=== PATIENT | female | born 1975 | race Caucasian/White ===

== ENCOUNTER 2020-06-26 09:39 | Emergency (ER) | payer OTHER ==
[~2020-06-26] VITALS: Ht 167.6 cm; Wt 70.1 kg
[~2020-06-26 09:39] MED LIST: FLUT1DIS3 INH
[2020-06-26] MEDS ORDERED: DEXAMETHASONE 4 MG TABLET PO ONE (10:30)
--- NOTE | 2020-06-26 10:45 | NUR ---
OBSERVED PT WALKING WITHIN ED ROOM, TALKING ON THE PHONE
[2020-06-26 10:50] LABS: ALBUMIN 4.2 g/dL (3.4-5.0); ANION GAP 4 mmol/L (5-15); CALCIUM 9.4 mg/dL (8.5-10.1); CHLORIDE 114 mmol/L (98-107); CREATININE 0.83 mg/dL (0.55-1.02)
[2020-06-26] MEDS ORDERED: DEXAMETHASONE 4 MG TABLET ONE (10:52)
[2020-06-26 10:54] LABS: TROPONIN I < 0.015 ng/mL (0.000-0.045)
--- NOTE | 2020-06-26 10:55 | NUR ---
PT STATES SHE HAD COVID TEST ON 06/15 AND 06/16; BOTH RESULTED POSITIVE. HOME QUARANTINE SINCE SX STARTED ON 06/13. NO RX TAKEN FOR SX; HAS BEEN TAKING VITAMIN C, D & ZINC. REPORTS SLIGHT SOB W/ SITTING STILL AND SLEEPY, INTERMITTENT DRY COUGH, TASTE & SMELL GRADUALLY RETURNING. DENIES SAMSON. ABLE TO SPEAK IN COMPLETE SENTENCES W/O DIFFICULTY
[2020-06-26 10:56] LABS: MEAN CORPUSCULAR HGB CONC 34.5 g/dL (32.4-35.8); PLATELET COUNT 240 x10^3/uL (130-400); RED BLOOD COUNT 5.37 x10^6/uL (3.82-5.3); RED CELL DISTRIBUTION WIDTH 12.6 % (9.6-15.2)
[2020-06-26] MEDS ORDERED: ESTROGEN PATCH (11:02)
[2020-06-26] MEDS ORDERED: ZINC (11:02)
[2020-06-26] MEDS ORDERED: VITAMIN D (11:02)
[2020-06-26] MEDS ORDERED: VITAMIN C (11:02)
--- NOTE | 2020-06-26 11:09 | NUR ---
PT STATES SHE REFUSED EKG EARLIER
[2020-06-26 11:51] LABS: MD YES
[2020-06-26 11:54] LABS: BAND#(MANUAL) 0.03 x10^3/uL; BANDS%(MANUAL) 1 % (0-7); EOS#(MANUAL) 0.16 x10^3/uL (0.0-0.4); EOS% (MANUAL) 5 % (1-7); LYMPH#(MANUAL) 1.34 x10^3/uL (1-3.4); LYMPHS% (MANUAL) 42 % (22-44); MONOS#(MANUAL) 0.13 x10^3/uL (0.3-2.7); MONOS% (MANUAL) 4 % (2-9); SEG#(MANUAL) 1.54 x10^3/uL (1.8-6.8); SEGS% (MANUAL) 48 % (42-75)
[2020-06-26 11:55] LABS: <PLATELET ESTIMATE> ADEQUATE; <PLT MORPHOLOGY> NORMAL PLT MORPH; <RBC MORPHOLOGY> NORMAL
[2020-06-26] MEDS ORDERED: FILTER 0.22 MICRON IV ONE (12:30)
[2020-06-26] MEDS ORDERED: BAMLANIVIMAB 700 MG in SODIUM CHLORIDE 0.9% 180 ML IVPB ONE (12:30)
--- NOTE | 2020-06-26 13:25 | NUR ---
PT NOTIFIED OF DELAY IN [facility] ADMINISTRATION; LACK OF PUMPS IN DEPT
--- NOTE | 2020-06-26 14:41 | NUR ---
RESTING QUIETLY ON GURNEY, RESP EVEN & UNLABORED; DENIES ADVERSE RX TO [facility]
--- NOTE | 2020-06-26 15:37 | NUR ---
[facility] INFUSED. ERP WAITING FOR D-DIMER RESULT; PT AWARE.
[2020-06-26 17:24] VITALS: BP 125/71
--- NOTE | 2020-06-26 17:26 | NUR ---
LATE ENTRY: 1400 PIV INITIATED PER THANG Hu RN, WHO FAILED TO DOCUMENT IV.
== END 2020-06-26 17:29 | disposition home or self-care (01) ==
LOC: ED 10:32
DX: J45.30 Mild persistent asthma, uncomplicated (principal); R06.02 Shortness of breath
CPT/HCPCS: 36415; 71045; 80048; 82040; 83605; 84484; 85025; 85379; 87040; 93005; 99285; J7050; M0239; Q0239

== ENCOUNTER → 2021-02-19 | Outpatient (CLI) | payer OTHER ==
[~2021-02-19] MED LIST changes: +ESTROGEN PATCH; +VITAMIN C; +VITAMIN D; +ZINC
== END | disposition home or self-care (01) ==
LOC: CFH 12:29
PROVIDERS: ATTEND Family Medicine
DX: Z12.31 Encounter for screening mammogram for malignant neoplasm of breast (principal)
CPT/HCPCS: 77063; 77067